=== PATIENT | female | born 1990 | race Asian ===

== ENCOUNTER 2018-08-30 18:40 | Emergency (ER) | payer MEDICAID ==
[~2018-08-30] VITALS: Ht 167.6 cm; Wt 65.8 kg
--- NOTE | 2018-08-30 18:45 | NUR ---
NOT IN WAITING ROOM
[2018-08-30 18:50] VITALS: BP 129/87
--- NOTE | 2018-08-30 18:50 | NUR ---
ED Nurse Note: pt walked in due to skin rash on left and right shoulder denies sob, pt stated it started at 4am last thursday. pt stated she has no allergies with anything, able to take benadryl but no help. will continue to monitor
--- NOTE | 2018-08-30 19:23 | Emergency Room Report ---
History of Present Illness General Chief Complaint: Skin Rash/Abscess Source: Patient Present Illness HPI 28-year-old female with no significant past medical history here complaining of 1 day of pruritic rash that started appearing in her neck as well as bilateral shoulders and back and armpits. Patient reports that her grandma who is at home as well as visiting over the weekend and found the same couch that she has been sitting on patient is afraid that she has scabies and wants to be treated for scabies. Denies any pain, fever and chills, pus drainage from the lesions. Has been taking Benadryl with minimal relief. Patient also has been developing some rash in the right forearm. Denies chest pain, shortness of breath, palpitation, swelling the neck, anaphylaxis, nausea vomiting. Denies intake of any medication, drugs, or contact with any known allergens. Allergies: Coded Allergies: Cultivated Oat Pollen (Verified Allergy, Unknown, 08/30/18) Patient History Past Medical History: see triage record Past Surgical History: unable to obtain Pertinent Family History: none Last Menstrual Period: 08/06/18 Now: No Immunizations: UTD Reviewed Nursing Documentation: PMH: Agreed; PSxH: Agreed Nursing Documentation-PMH Past Medical History: No Stated History Review of Systems All Other Systems: negative except mentioned in HPI Physical Exam Vital Signs Date Time Temp Pulse Resp B/P (MAP) Pulse Ox O2 Delivery O2 Flow Rate FiO2 08/30/18 18:47 98.1 81 16 129/87 (101) 99 Room Air Sp02 EP Interpretation: reviewed, normal General Appearance: normal inspection, well appearing, no apparent distress, alert Head: normocephalic, atraumatic Eyes: bilateral eye normal inspection, bilateral eye PERRL ENT: normal ENT inspection, hearing grossly normal, normal pharynx Neck: normal inspection, full range of motion, supple, thyroid normal Respiratory: normal inspection, chest non-tender, lungs clear, no rhonchi, no respiratory distress, no wheezing Cardiovascular #1: normal inspection, no edema, no gallop, no murmur, no rub, normal capillary refill Gastrointestinal: normal inspection, non tender, soft Genitourinary: no CVA tenderness Musculoskeletal: normal inspection, back normal Neurologic: normal inspection, alert, oriented x3, craft artist III-XII nml as tested Psychiatric: normal inspection, judgement/insight normal Skin: other - Urticaria rash on arms, neck, abdomen and arm, no burrowlike lesions noted also particularly in the armpit. Lymphatic: normal inspection, no adenopathy Medical Decision Making PA Attestation All diagnoses and treatment plans were reviewed and discussed with my supervising physician Dr. Phillips Diagnostic Impression: Primary Impression: Allergic contact urticaria Additional Impression: Exposure to scabies ER Course 28-year-old female with no significant past medical history here complaining of 1 day of pruritic rash that started appearing in her neck as well as bilateral shoulders and back and armpits. Patient reports that her grandma who is at home as well as visiting over the weekend and found the same couch that she has been sitting on patient is afraid that she has scabies and wants to be treated for scabies. Denies any pain, fever and chills, pus drainage from the lesions. Has been taking Benadryl with minimal relief. Patient also has been developing some rash in the right forearm. Denies chest pain, shortness of breath, palpitation, swelling the neck, anaphylaxis, nausea vomiting. Denies intake of any medication, drugs, or contact with any known allergens. Ddx considered but are not limited to: Eczema, scabies, lice, Vital signs: are WNL, pt. is afebrile H&PE are most consistent with: Allergic contact urticaria, exposure to scabies ORDERS: Prednisone, hydrocortisone cream, Benadryl, permethrin cream per requested by patient ED INTERVENTIONS: None required at this time. DISCHARGE: At this time pt. is stable for d/c to home. Will provide printed patient care instructions, and any necessary prescriptions. Care plan and follow up instructions have been discussed with the patient prior to discharge. Last Vital Signs Date Time Temp Pulse Resp B/P (MAP) Pulse Ox O2 Delivery O2 Flow Rate FiO2 08/30/18 18:50 98.1 16 129/87 99 Room Air 08/30/18 18:47 81 Disposition: HOME, SELF-CARE Condition: Stable Scripts Permethrin* (ELIMITE*) 60 Gm Cream..g. 1 APPLIC TOPIC ONCE, #60 GM 0 Refills Apply cream from head to toe; leave on for 8-14 hours before washing off with water; may reapply in 1 week if live mites appear. Prov: Sahelimoghavami,Nahal PA 08/30/18 Diphenhydramine HCl (Benadryl) 25 Mg Capsule 25 MG PO TID, #30 CAP Prov: Jennifer Vela 08/30/18 Hydrocortisone 2% Cream (ANTI-ITCH 2% CREAM) Y Cr 2 GM TP TID, #28 GM Prov: Jennifer Vela 08/30/18 Prednisone (Prednisone) 20 Mg Tablet 20 MG PO BID for 5 Days, #10 TAB Prov: Jennifer Vela 08/30/18 Patient Instructions: Contact Dermatitis, [id number], Scabies, Pediatric Additional Instructions: Take medication as directed follow-up with primary care provider if difficulty breathing or swallowing return to the emergency room. Use [id number] lotion called Cetaphil Jennifer Vela Aug 30, 2018 19:23
[2018-08-30] MEDS ORDERED: ANTI-ITCH28 G1 TP (19:25)
[2018-08-30] MEDS ORDERED: PERMETHRIN60 GM TOPIC (19:25)
[2018-08-30] MEDS ORDERED: BENADRYL25 M3 PO (19:25)
[2018-08-30] MEDS ORDERED: PREDNISONE20 M1 PO (19:25)
[2018-08-30 19:30] VITALS: BP 129/87
== END 2018-08-30 19:30 | disposition home or self-care (01) ==
LOC: EMR 19:15
DX: L50.0 Allergic urticaria (principal); Z91.018 Allergy to other foods
CPT/HCPCS: 99283